=== PATIENT | female | born 1990 | race Caucasian/White ===

== ENCOUNTER 2019-03-16 05:33 | Inpatient (IN) | payer OTHER ==
[2019-03-16] VITALS (7 sets, daily range): BP systolic 96–109; BP diastolic 6–87; PULSE 77–98; RESP 14–19; Ht 156.2 cm; Wt 81.3 kg
[~2019-03-16] VITALS: Ht 156.2 cm; Wt 81.3 kg
[2019-03-16] MEDS: LACTATED RINGER'S 1,000 ML IV SCH ×3 (06:25→21:15)
[2019-03-16] MEDS ORDERED: OXYTOCIN 30 UNITS/LR 500 ML IV PRN (06:30)
[2019-03-16] MEDS ORDERED: CARBOPROST 250 MCG INJ IM PRN (06:30)
[2019-03-16] MEDS ORDERED: OXYTOCIN 30 UNITS/LR 500 ML IV SCH (06:30)
[2019-03-16] MEDS ORDERED: CEFAZOLIN 2 GM/50 ML (PMX) 50 ML IVPB SCH (06:30)
[2019-03-16] MEDS ORDERED: MISOPROSTOL 200 MCG TAB PR PRN ×2 (06:30→08:00)
[2019-03-16] MEDS ORDERED: METHYLERGONOVINE 0.2 MG INJ IM PRN (06:30)
[2019-03-16] MEDS ORDERED: OXYTOCIN 30 UNITS/LR 500 ML BAG IV ONE (07:00)
[2019-03-16] MEDS ORDERED: CITRIC ACID/NA CITRATE 30 ML CUP ONE (07:22)
[2019-03-16] MEDS ORDERED: ONDANSETRON 4 MG INJ ONE (07:22)
--- NOTE | 2019-03-16 07:27 | PREAC ---
Date/Time of Note Date/Time of Note DATE: 03/16/19 TIME: 07:25 Anesthesia Eval and Record Evaluation Time Pre-Procedure Interview DATE: 03/16/19 TIME: 07:25 Age 28 Sex female NPO: 8 hrs Preoperative diagnosis Repeat and BTL Planned procedure , & BTL Past Medical History Past Medical History: Includes : : (4), Para: (2), Gestational age: (39) Surgery & Anesthesia Issues No known issue Meds Anticoagulation: No Beta Malina within 24 hr: No Reason Beta Malina not given: Pt. not on B-Malina Current Medications Lactated Ringer's 1,000 ml @ 125 mls/hr Q8H IV Last administered on 03/16/19at 07:23; Admin Dose 125 MLS/HR; Start 03/16/19 at 06:10 Oxytocin/Lactated Ringer's 500 ml @ 125 mls/hr POST IV ; Start 03/16/19 at 06:30 Oxytocin/Lactated Ringer's 500 ml @ 0 mls/hr ONCE PRN IV .VAGINAL BLEEDING; Start 03/16/19 at 06:30 Methylergonovine Maleate (Methergine) 0.2 mg ONCE PRN IM .VAGINAL BLEEDING; Start 03/16/19 at 06:30 Carboprost Tromethamine (Hemabate) 250 mcg ONCE PRN IM .VAGINAL BLEEDING; Start 03/16/19 at 06:30 Misoprostol (Cytotec) 1,000 mcg ONCE PRN DE .VAGINAL BLEEDING; Start 03/16/19 at 06:30 Cefazolin Sodium/ Dextrose 50 ml @ 100 mls/hr ONCE IVPB ; Start 03/16/19 at 06:30 Meds reviewed: Yes Allergies Coded Allergies: No Known Drug Allergy (Verified Allergy, Unknown, 01/05/10) Allergies Reviewed: Yes Labs/Studies Labs Reviewed: Reviewed by anesthesiologist Result Diagram: 03/16/19 0625 Laboratory Tests 03/16/19 06:25 test: Positive Studies: ECG (n/a), CXR (n/a) Pre-procedure Exam Last vitals Vital Signs Date Temp Pulse Resp B/P (MAP) Pulse Ox O2 O2 Flow FiO2 Time Delivery Rate 03/16/19 97.9 81 18 107/61 Room Air 06:09 (76) Airway: Adequate mouth opening, Adequate thyromental dist Mallampati: Mallampati II Teeth: Normal Lung: Normal Heart: Normal ASA Physical Status ASA physical status: 2 Emergency: None Planned Anesthetic Neuraxial: Spinal Planned Pain Management Sub-arachniod narcotics, Parenteral pain med Pre-operative Attestations Prior to commencing anesthesia and surgery, the patient was re-evaluated, there was verification of: *The patient's identity *The results of appropriate recent lab work and preoperative vital signs *The above evaluation not changing prior to induction *Anesthetic plan, risk benefits, alternative and complications discussed with patient/family; questions answered; patient/family understands, accepts and wi shes to proceed. BAUDILIO LYON MD March 16, 2019 07:27
[2019-03-16] MEDS ORDERED: OXYTOCIN 10 UNIT INJ ONE (07:29)
[2019-03-16] MEDS ORDERED: PHENYLephrine (100 MCG/ML) 10ML SYG ONE (07:29)
[2019-03-16] MEDS ORDERED: PHENYLephrine 10 MG INJ ONE (07:29)
[2019-03-16] MEDS ORDERED: morphine SULFATE/PF (10 MG/10 ML) INJ ONE (07:29)
[2019-03-16] MEDS ORDERED: ONDANSETRON 4 MG INJ IV ONE (07:30)
[2019-03-16] MEDS ORDERED: CITRIC ACID/NA CITRATE 30 ML CUP PO ONE (07:30)
[2019-03-16] MEDS ORDERED: LACTATED RINGER'S 1,000 ML IV SCH (07:47)
--- NOTE | 2019-03-16 07:47 | HP ---
Date/Time of Note Date/Time of Note DATE: 03/16/19 TIME: 07:44 OB - History Hx of Present Free Text/Dictation 28 YO with EDC 03/21/2019 with IUP at 39.2 weeks with history of previous delivery, who desires to have repeat delivery and Permanent sterilization. I discussed with the patient the risks, benefits, indications, and alternatives of procedure including but not limited to risks of infection, bleeding, damage to other organs, bowel, bladder, hernia formation, scar formation, possibility of blood transfusion, possible need for emergency hysterectomy, as well as the fact that tubal ligation may fail and there is 1 to 2% risk of failure over lifetime of tubal ligations and the fact that tubal ligation is permanent and irreversible. She was allowed to ask questions. All her questions were answered. Informed consent has been obtained. Care: Good Care Ultrasounds: Normal mid trimester US Obstetrical Complications: None Medical Complications: None Past Family/Social History * Past Medical, Surgical, Family and Obstetric Histories reviewed from chart. OB Admission Exam Vital Signs Vital Signs Vital Signs Date Temp Pulse Resp B/P (MAP) Pulse Ox O2 O2 Flow FiO2 Time Delivery Rate 03/16/19 97.9 81 18 107/61 Room Air 06:09 (76) Physical Exam HEENT: WNL Heart: Rhythm Normal Lungs: Clear, Equal Abdomen: WNL Extremities: Normal Reflexes: Normal Last 72 hours Lab Results CBC & BMP 03/16/19 06:25 OB Assessment/Plan Other Assessment: IUP at 39.2 weeks she desires repeat and permanent sterilization Other plan: Repeat c/s and tubal sterilization KAROL NEIL MD March 16, 2019 07:47
[2019-03-16] MEDS ORDERED: LANOLIN HPA 1 PKT TOP PRN (08:00)
[2019-03-16] MEDS ORDERED: OXYCODONE/ACETAMINOPHEN (5/325) TAB PO PRN ×3 (08:00→09:00)
[2019-03-16] MEDS ORDERED: NA PHOSPHATE/BIPHOS 133 ML ENEMA PR PRN (08:00)
[2019-03-16] MEDS ORDERED: MEPERIDINE 100 MG INJ ONE (08:17)
[2019-03-16] MEDS ORDERED: DEXAMETHASONE 4 MG/ML 1 ML INJ ONE (08:27)
[2019-03-16] MEDS ORDERED: KETOROLAC 30 MG INJ ONE (08:27)
[2019-03-16] MEDS ORDERED: METOCLOPRAMIDE 10 MG INJ ONE (08:27)
[2019-03-16] MEDS ORDERED: EPHEDrine 25 MG/5 ML SYG IV PRN (09:00)
[2019-03-16] MEDS ORDERED: HYDROmorphONE 0.5 MG/0.5 ML SYG IV PRN ×2 (09:00)
[2019-03-16] MEDS ORDERED: NALOXONE (0.4 MG/ML) INJ IV PRN (09:00)
[2019-03-16] MEDS ORDERED: HYDROmorphONE 1 MG/5 ML IV SYRINGE IV PRN ×3 (09:00)
[2019-03-16] MEDS ORDERED: morphine 2 MG INJ IV PRN ×2 (09:00)
[2019-03-16] MEDS ORDERED: FENTAnyl 50 MCG/ML VIAL IV PRN ×3 (09:00)
[2019-03-16] MEDS ORDERED: NALBUPHINE HCL (10 MG/1 ML) INJ IV PRN (09:00)
[2019-03-16] MEDS: SENNA/DOCUSATE NA (8.6MG/50MG) TAB PO SCH ×2 (09:00→20:41)
[2019-03-16] MEDS ORDERED: ONDANSETRON 4 MG INJ IV PRN ×2 (09:00)
[2019-03-16] MEDS ORDERED: DIPHENHYDRAMINE 50 MG INJ IV PRN (09:00)
[2019-03-16] MEDS ORDERED: HYDROCODONE/APAP (5/325) TAB PO PRN (09:00)
[2019-03-16] MEDS ORDERED: ACETAMINOPHEN 500 MG TAB PO PRN (09:00)
[2019-03-16] MEDS ORDERED: MEPERIDINE 25 MG INJ IV PRN (09:00)
--- NOTE | 2019-03-16 09:21 | PAC ---
Date/Time of Note Date/Time of Note DATE: 03/16/19 TIME: 09:20 Post-Anesthesia Notes Post-Anesthesia Note Last documented vital signs Vital Signs Date Temp Pulse Resp B/P (MAP) Pulse Ox O2 O2 Flow FiO2 Time Delivery Rate 03/16/19 97.9 81 18 107/61 100 Room Air 09:29 (76) Activity: WNL Respiratory function: WNL Cardiovascular function: WNL Mental status: Baseline Pain reasonably controlled: Yes Hydration appropriate: Yes Nausea/Vomiting absent: Yes BAUIDLIO LYON MD March 16, 2019 09:21
--- NOTE | 2019-03-16 09:23 | OPR ---
Date/Time of Note Date/Time of Note DATE: 03/16/19 TIME: : Operative Report Procedure Date: March 16, 2019 Preoperative Diagnosis IUP at 39.2 weeks Prior Delivery delivery x 2 Desires permanent sterilization Postoperative Diagnosis same pelvic adhesions Operation/Procedure Performed Repeat delivery Bilateral distal salpingectomies Lysis of adhesions Surgeon Salvador Remy MD [employer] Dr. [place] Anesthesia Type: spinal Estimated Blood Loss: other (700 ml) Transfusion none Specimen distal segments of bilateral tubes Grafts/Implants none Tubes/Drains Cruz Cath Complications none Pt Condition Post Procedure: stable Disposition: PACU Procedure Description The risks, benefits, indications, alternatives of procedure including, but not limited to risk of infection, bleeding, damage to other organs, bowel, bladder, hernia formation, scar formation, possibility of blood transfusions, the risks of tubal ligation such as failure and future pregnancies were discussed with the patient. The fact that BTL is permanent and irreversible also discussed with patient. She was allowed to ask questions. All her questions were answered. Informed consent was obtained. DESCRIPTION OF PROCEDURE: She was taken to the operating room. Spinal anesthesia was induced. She was prepped and draped in the usual sterile fashion. Surgical time out one. Anesthesia was tested to be adequate. With permission from anesthesiologist, a knife was used to make a Pfannenstiel skin incision. The incision was taken down in layers. The fascia was cut, undermined and from the underlying muscle using sharp and blunt dissection. All the bleeders were cauterized. Peritoneum was entered bluntly. we encountered dense adhesions from omentum to anterior abdominal wall and adnexa. we had to proceed with lysis of these adhesions in order o proceed with surgery. adhesions released using sharp and blunt dissection at all times protecting bowel and bladder. A low transverse incision was developed over the uterus. Amniotic fluid was clear and adequate. A viable infant in vertex presentation was delivered without any difficulty. The cord was clamped and cut, handed to awaiting team. Placenta was then delivered. Uterus was exteriorized, wrapped around a moist lap. Inside uterus was cleaned using a dry lap. All residual membranes were removed. The uterine incision was then closed using #1 Monocryl in 2 layers. A 5 cm distal end of the right tube was ligated 3 times using 0 plain tie and the ligated portion was cut, sent to pathology. Same procedure was done on the contralateral side. The uterus was inserted back inside the abdominal cavity. Irrigation was done carefully. Careful evaluation of the uterine incision revealed no further bleeding. The tubal ligation sites were evaluated carefully. There was no bleeding. The peritoneum and rectus muscles and fascia were evaluated. All bleeders cauterized. Peritoneum was closed using 2-0 Monocryl. At this time, the count was correct. Rectus muscle was reapproximated using 2-0 Monocryl. Rectus fascia was closed using #1 Vicryl. Subcutaneous tissue was cleaned and irrigated. All bleeders cauterized and the skin closed using 4-0 Monocryl. All counts correct. SALVADOR REMY MD March 16, 2019 09:23
[2019-03-16] MEDS: KETOROLAC 30 MG INJ IV PRN ×2 (10:53→17:05)
[2019-03-16] MEDS: IBUPROFEN 600 MG TAB PO SCH ×3 (12:00→23:24)
[2019-03-17 03:12] VITALS: BP 95/50; PULSE 95; RESP 19
[2019-03-17] MEDS: KETOROLAC 30 MG INJ IV PRN (03:12)
[2019-03-17] MEDS: IBUPROFEN 600 MG TAB PO SCH ×4 (05:29→23:32)
[2019-03-17] MEDS: LACTATED RINGER'S 1,000 ML IV SCH (05:44)
[2019-03-17 08:00] VITALS: BP 110/70; PULSE 82; RESP 18
[2019-03-17] MEDS: SENNA/DOCUSATE NA (8.6MG/50MG) TAB PO SCH ×2 (09:26→20:50)
--- NOTE | 2019-03-17 10:03 | QN ---
Documentation Comment s/p c/s Subjective: no complaint Objective: Afebrile, VSS NAD A&O Abdomen: soft, appropriate tender Incision: no sign of bleeding/infection mild lochia Extremity: 1+ edema bilaterally Assessment: S/p C/S + BTL POD # 1 Recovering Well Plan: current care KAROL NEIL MD March 17, 2019 10:03
[2019-03-17 16:20] VITALS: BP 108/60; PULSE 95; RESP 18
[2019-03-17 19:50] VITALS: BP 109/80; PULSE 103; RESP 18
[2019-03-18 03:35] VITALS: BP 114/69; PULSE 92; RESP 18
[2019-03-18] MEDS: IBUPROFEN 600 MG TAB PO SCH ×2 (05:28→11:58)
--- NOTE | 2019-03-18 07:45 | DS ---
Date/Time of Note Date/Time of Note DATE: 03/18/19 TIME: 07:45 Obstetrical Discharge Record Final Diagnosis Final Diagnosis: Term delivered Vaginal Delivery Obstetrical Delivery: Bilateral Tubal Ligation Section Section: Repeat Complications Augmentation: No Induction: No Rupture of Membranes: No Condition on Discharge Physical Assessment Voiding: Yes Bowel Movement: Yes Breast: Soft, non-tender, Filling Fundus: Firm Abdomen and Incision: soft, appropriate tenderness Calf Tenderness: No Patient Condition: Good KAROL NEIL MD March 18, 2019 07:45
[2019-03-18 08:00] VITALS: BP 114/77; PULSE 80; RESP 20
[2019-03-18] MEDS: SENNA/DOCUSATE NA (8.6MG/50MG) TAB PO SCH (09:00)
[2019-03-18] MEDS ORDERED: MEASLES,MUMPS,RUBELLA VACCINE INJ SC* ONE (12:00)
[2019-03-18] MEDS ORDERED: DIPHTH/TET/ACEL PERTUSS (ADULT) 0.5 ML VIAL IM* ONE (12:00)
--- NOTE | 2019-03-19 14:22 | DELSUM ---
Delivery Summary A-C Datetime Report Generated by CPN: 03/19/2019 14:22 DELIVERY PERSONNEL Salesperson [employer]: Drea Echeverria MATERNAL INFORMATION Delivery Anesthesia: Spinal Medications in Delivery: SEE ANESTHESIA NOTE Delivery QBL (ml): 700 Placenta Cultured: No Maternal Complications: None LABOR SUMMARY EDC: 03/21/2019 00:00 No. Babies in Womb: 1 Attempted: No Labor Anesthesia: None LABOR INFORMATION Reason for Induction: Not Applicable Oxytocin: N/A Group B Beta Strep: Negative Antibiotics # of Doses: 1 Antibiotics Time of Last Dose: 03/16/2019 07:55 Steroids Given: None Reason Steroids Not Administered: Not Applicable MEMBRANES Membranes Rupture Method: Artificial Rupture of Membranes: 03/16/2019 08:28 Length of Rupture (hr): 0.00 Amniotic Fluid Color: Clear Amniotic Fluid Amount: Small Amniotic Fluid Odor: Normal STAGES OF LABOR Stage 3 hr: 0 Stage 3 min: 1 CSECTION DELIVERY Primary Indication: Repeat Elective CSection Urgency: Elective CSection Incidence: Repeat Labor: No Labor Elective: Elective CSection Incision: Lower Uterine Transverse Sterilization Procedure: Dustin BABY A INFORMATION Delivery Date/Time: 03/16/2019 08:28 Method of Delivery: Born in Route : No : N/A Forceps: N/A Vacuum Extraction: N/A Shoulder Dystocia : N/A SHOULDER DYSTOCIA BABY A Delivery Date/Time: 03/16/2019 08:28 PRESENTATION/POSITION BABY A Presentation: Cephalic Cephalic Presentation: Vertex Vertex Position: N/A Breech Presentation: N/A PLACENTA INFORMATION BABY A Placenta Delivery Time : 03/16/2019 08:29 Placenta Method of Delivery: Manual Removal Placenta Status: Delivered SCORES BABY A Heart Rate 1 min: >100 bpm Resp Effort 1 min: Good Cry Reflex Irritability 1 min: Cough/Sneeze/Pulls Away Muscle Tone 1 min: Active Motion Color 1 min: Body [place], Extremit Blue Resuscitation Effort 1 min: Tactile Stimulation SCORE 1 MIN: 9 Heart Rate 5 min: >100 bpm Resp Effort 5 min: Good Cry Reflex Irritability 5 min: Cough/Sneeze/Pulls Away Muscle Tone 5 min: Active Motion Color 5 min: Body [place], Extremit Blue Resuscitation Effort 5 min: Tactile Stimulation SCORE 5 MIN: 9 INFORMATION BABY A Gestational Age at Delivery: 39.2 Gestational Status: Full Term- 39- 40.6 Weeks Outcome : Liveborn Infant Condition : Stable Infant Sex: Male IDENTIFICATION/MEDS BABY A ID Band Number: [id number] ID Band Location: Right Leg; Left Leg Sensor Applied: Yes Sensor Number: [id number] Sensor Location : Cord Clamp Vitamin K Given : Not Given Erythromycin Given: Not Given WEIGHT/LENGTH BABY A Birthweight (gm): 3350 Weight (lb): 7 Infant Weight (oz): 6 Infant Length (in): 20.50 Infant Length (cm): 52.07 CORD INFORMATION BABY A No. Cord Vessels: 3 Nuchal Cord : N/A Cord Blood Taken: Yes Infant Suction: Mouth; Nose ASSESSMENT BABY A Infant Complications: None Physical Findings at Delivery: Within Normal Limits Infant Respirations: Appears Normal Implementation Architect/ALS Called : Yes Care By: RT Transferred To: Remains with Mother
== END 2019-03-18 13:25 | disposition home or self-care (01) | DRG 785 ==
LOC: L-D 05:33 → PP1 12:11
PROVIDERS: ADMIT Specialist; ATTEND Specialist
PROC: 0UB70ZZ Excision of Bilateral Fallopian Tubes, Open Approach (ICD-10-PCS; 2019-03-16)
PROC: 10D00Z1 Extraction of Products of Conception, Low, Open Approach (ICD-10-PCS; principal; 2019-03-16 07:30)
PROC: 3E0234Z Introduction of Serum, Toxoid and Vaccine into Muscle, Percutaneous Approach (ICD-10-PCS; 2019-03-18)
DX: O34.219 Maternal care for unspecified type scar from previous cesarean delivery (principal); Z3A.39 39 weeks gestation of pregnancy; Z37.0 Single live birth; Z23 Encounter for immunization; Z30.2 Encounter for sterilization
CPT/HCPCS: 85025; 85610; 85730; 86592; 86850; 86900; 86901; 87340; 88302; 90715; 99464; J0690; J1100; J1200; J1885; J2175; J2274; J2370; J2405; J2590; J2765; J7120